=== PATIENT | male | born 1985 | race African-American/Black ===

== ENCOUNTER 2023-01-29 10:17 | Emergency (ER) | payer OTHER, SELFPAY ==
[2023-01-29 10:25] VITALS: BP 139/91; PULSE 75; RESP 16; TEMP 36.9; O2SAT 100
[2023-01-29 11:53] LABS: Appearance Urine Clear (Clear); Bilirubin Urine Negative (Negative); Blood Urine Negative (Negative); Color Urine Yellow (Yellow); Glucose Urine UA Negative (Negative); Ketones Urine Negative (Negative); Leukocyte Esterase Ur Negative LEU/UL (Negative); Nitrate Urine Negative (Negative); Protein Urine Negative (Negative); Specific Grav Ur 1.025 (1.001-1.035); Urobilinogen Urine 0.2 mg/dL (<2.0); pH Urine 5.5 (5.0-9.0)
[2023-01-29 12:16] LABS: Add Urine Microscopic? NO
--- NOTE | 2023-01-29 13:54 | ED.MALEGU ---
HPI - Male Genitourinary General Chief complaint: Urogenital-Male Stated complaint: prostate problems/urinating blood after sex Time Seen by Provider: 01/29/23 10:35 History of Present Illness HPI Narrative: Patient is a 37-year-old male who presents ER with hematuria. Patient reports whenever he has sexual intercourse over the last month he starts to urinate blood afterwards. There are clots the size of a quarter present. He denies having any pain while having sex. He does report he will get some mild discomfort in his testicles when this occurs. He reports that if he masturbates he has no issues with bleeding from his penis. Outside that he has no baseline testicular pain or dysuria. No fevers or chills or sweats. He reports he has both protected and and unprotected sex with multiple partners. No drainage from the tip of his penis. He denies any foreign body insertion into his urethra. There are no piercings present. Related Data Allergies Allergy/AdvReac Type Severity Reaction Status Date / Time No Known Allergies Allergy Verified 01/29/23 10:27 Review of Systems Constitutional: Constitutional: Denies chills and Denies fever(s) Gastrointestinal: Gastrointestinal: Denies abdominal pain, Denies nausea and Denies vomiting Genitourinary: Genitourinary: Reports hematuria, Denies genital lesions, Denies dysuria, Denies penile discharge, Reports testicular pain and Denies urinary frequency PMFSH Past Medical History Medical History (Updated 01/29/23 @ 15:24 by Sherwin Coreas MD) Healthy adult male Surgical History Surgical History (Updated 01/29/23 @ 13:56 by Sherwin Coreas MD) No pertinent past surgical history Exam Narrative: GENERAL: Well-appearing, well-nourished, and in no acute distress. HEAD: Normocephalic, atraumatic. : Normal-appearing external genitalia. No tenderness to the penile shaft and no scar tissue palpated. Normal urethral meatus without blood or discharge. Testicles nontender normal in size. EXTREMITIES: Normal range of motion. No edema. SKIN: Warm, dry, no rash. NEURO: Alert and oriented x3. PSYCH: Normal mood and affect. Course Vital Signs Vital signs: Vital Signs Temperature 98.5 F 01/29/23 10:25 Pulse Rate 75 01/29/23 10:25 Respiratory Rate 16 01/29/23 10:25 Blood Pressure 139/91 H 01/29/23 10:25 Pulse Oximetry 100 01/29/23 10:25 Temperature 98.5 F 01/29/23 10:25 Pulse Rate 75 01/29/23 10:25 Respiratory Rate 16 01/29/23 10:25 Blood Pressure 139/91 H 01/29/23 10:25 Pulse Oximetry 100 01/29/23 10:25 MDM - Male Genitourinary MDM Narrative Medical decision making narrative: -Presentation: 37-year-old male presenting with postcoital hematuria. -DDX includes but is not limited to: STI, urethral injury, UTI -Co-morbidities complicating care: None -Social determinants of health: None -External Chart Review: None -Hx from independent Sources: Patient -Independent interpretation of studies: No STI or urine infection. No evidence of hematuria. -Discussion of Management/Consultants: Attempted to contact urology multiple times without success. -Dx tests considered but not ordered: none -Procedures: none -Interventions: none -Shared decision making / Disposition: Recommend making outpatient follow-up appointment with urology. Informed of urinary results. -RX: None Lab Data Labs: Lab Results 01/29/23 Range/Units 11:33 Urine Color Yellow (Yellow) Urine Appearance Clear (Clear) Urine pH 5.5 (5.0-9.0) Ur Specific [place] 1.025 (1.001-1.035) Urine Protein Negative (Negative) mg/dL Urine Glucose (UA) Negative (Negative) mg/dL Urine Ketones Negative (Negative) mg/dL Ur Blood (Man) Negative (Negative) Urine Nitrate Negative (Negative) Urine Bilirubin Negative (Negative) Urine Urobilinogen 0.2 (<2.0) mg/dL Leukocyte Esterase Rfl Negative (Negative) JOSETTE/UL C.
[2023-01-29 14:16] LABS: Chlamydia trachomatis NOT DETECTED (NOT DETECTE); Neisseria gonorrhoeae PCR NOT DETECTED (NOT DETECTE)
== END 2023-01-29 15:25 | disposition home or self-care (01) ==
PROVIDERS: Emergency Provider Emergency Medicine
DX: R31.9 Hematuria, unspecified (principal)
CPT/HCPCS: 81003; 87491; 87591; 99283

== ENCOUNTER 2023-12-10 18:48 | Emergency (ER) | payer SELFPAY ==
--- NOTE | ~2023-12-10 | XR_ITS ---
EXAMINATION: XR hand RT min 3V DATE: 12/10/2023 19:07 INDICATION: Right hand injury and pain. TECHNIQUE: 4 views of right hand were obtained. COMPARISON: None. FINDINGS: Bone alignment is normal. There is a nondisplaced fracture of tuft of third distal phalanx. Joint spaces are normal. IMPRESSION: 1. Nonspecific fracture of tuft of third distal phalanx. Reviewed, dictated and finalized at location E.
--- NOTE | 2023-12-10 19:01 | ED.GENADULT ---
[facility] - General Adult General Chief complaint: Extremity Injury, Upper Stated complaint: R 3rd digit injury Time Seen by Provider: 12/10/23 18:58 Source: patient Mode of arrival: ambulatory Limitations: no limitations History of Present Illness HPI narrative: this is a 37-year-old male who presents to the ED with chief complaint of injury to the right 3rd and 4th digits. 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 reports swelling to the tip of the right 3rd digit. States the lawnmower was spinning while he was working on a but did not suffer any laceration. Denies any further sites of pain or injury. Related Data Allergies Allergy/AdvReac Type Severity Reaction Status Date / Time No Known Allergies Allergy Verified 01/29/23 10:27 Review of Systems Review of Systems: All systems as dictated in [facility] Past Medical History Medical History (Updated 12/10/23 @ 19:34 by Prince Mckeon PA-C) Healthy adult male Surgical History Surgical History (Updated 01/29/23 @ 13:56 by Sherwin Coreas MD) No pertinent past surgical history Exam Narrative: GENERAL: Well-appearing, well-nourished, and in no acute distress. HEAD: Normocephalic, atraumatic. MSK: R hand: Tenderness and swelling to distal middle finger. Cap refill intact L hand: benign SKIN: Warm, dry, no rash. NEURO: Alert and oriented x4. No focal deficits. PSYCH: Normal mood and affect. Course Vital Signs Vital signs: Vital Signs Pulse Rate 78 12/10/23 19:45 Respiratory Rate 15 12/10/23 19:45 Blood Pressure 140/78 12/10/23 19:45 Pulse Oximetry 100 12/10/23 19:45 Pulse Rate 78 12/10/23 19:45 Respiratory Rate 15 12/10/23 19:45 Blood Pressure 140/78 12/10/23 19:45 Pulse Oximetry 100 12/10/23 19:45 Medical Decision Making [facility] Narrative Medical decision making narrative: This is a 37-year-old male who presents to the ED for chief complaint of right middle finger injury. He has a distal tuft fracture noted. Vitals are normal. Exam remarkable for the above. No displacement on the x-ray. Patient was placed in a finger splint. Will be discharged stable condition with short course of pain medicine. Return precautions given Vital Signs Vital Signs: Vital Signs Pulse Rate 78 12/10/23 19:45 Respiratory Rate 15 12/10/23 19:45 Blood Pressure 140/78 12/10/23 19:45 Pulse Oximetry 100 12/10/23 19:45 Pulse Rate 78 12/10/23 19:45 Respiratory Rate 15 12/10/23 19:45 Blood Pressure 140/78 12/10/23 19:45 Pulse Oximetry 100 12/10/23 19:45 Discharge Plan Discharge Clinical Impression: Closed fracture of tuft of distal phalanx of finger Patient Disposition: Home, Self-Care Condition: Stable Instructions: Antibiotic Form Additional Instructions: your exam shows a fracture of the end of the middle finger. Please use the splint until you are able to see the hand doctor. Take [place] as needed for pain control. Use ibuprofen regularly for baseline pain control If you have any new or worsening symptoms please return to the ER for further evaluation. Prescriptions: New hydrocodone-acetaminophen 5-325 mg tablet 1 tablet PO Q8H PRN (Reason: pain) Qty: 14 0RF Follow-up/Referrals: PHYSICIAN NOT ON STAFF,NONSTAFF [Primary Care Provider] - Time of Disposition: 19:36
[2023-12-10] MEDS: HYDROcodone/acetaminophen (*CRX) 5-325 MG TABLET 1 TAB PO (19:40)
[2023-12-10 19:45] VITALS: BP 140/78; PULSE 78; RESP 15; O2SAT 100
== END 2023-12-10 19:46 | disposition home or self-care (01) ==
PROVIDERS: Emergency Provider Physician Assistant
DX: S62.632A Displaced fracture of distal phalanx of right middle finger, initial encounter for closed fracture (principal); X58.XXXA Exposure to other specified factors, initial encounter
CPT/HCPCS: 29130; 73130; 99284; A9270

== ENCOUNTER 2024-03-04 11:13 | Emergency (ER) | payer SELFPAY ==
[2024-03-04 11:17] VITALS: BP 123/87; PULSE 110; RESP 17; TEMP 36.6; O2SAT 99
== END 2024-03-04 17:16 | disposition left against medical advice (07) ==
DX: K62.89 Other specified diseases of anus and rectum (principal)
CPT/HCPCS: 99199